=== PATIENT | male | born 1950 | race Caucasian/White ===

== ENCOUNTER → 2022-05-08 | Outpatient (CLI) | payer OTHER, MEDICARE, MEDICAID | LOC: M RAD 08:31 | PROVIDERS: ATTEND Nurse Practitioner Family | DX: K76.0 Fatty (change of) liver, not elsewhere classified (principal); R16.1 Splenomegaly, not elsewhere classified; R18.8 Other ascites; R74.01 Elevation of levels of liver transaminase levels ==

== ENCOUNTER 2022-07-07 12:02 | Observation (INO) | payer MEDICARE, MEDICAID ==
[~2022-07-07] VITALS: Ht 175.3 cm; Wt 62.3 kg
[2022-07-07] MEDS ORDERED: COLC0.6T47 PO (12:18)
[2022-07-07] MEDS ORDERED: ASPI81TA26 PO (12:18)
[2022-07-07] MEDS ORDERED: SPIR-10 PO (12:18)
[2022-07-07] MEDS ORDERED: FURO40TA2 PO (12:18)
[2022-07-07] MEDS ORDERED: ENTR1TAB PO (12:18)
[2022-07-07] MEDS ORDERED: JARD1TAB3 PO (12:18)
[2022-07-07] MEDS ORDERED: POTA1TAB14 PO (12:18)
[2022-07-07] MEDS ORDERED: ATOR80TA59 PO (12:18)
[2022-07-07] MEDS ORDERED: PANT40TA29 PO (12:18)
[2022-07-07] MEDS ORDERED: CHOL125C6 PO (12:18)
[2022-07-07] MEDS ORDERED: CARV25TA PO (12:18)
[2022-07-07] MEDS ORDERED: ALLO300T2 PO (12:18)
[2022-07-07 13:02] LABS: BASO % 0.6 % (0.0-1.0); EOS # 0.1 10^3/uL (0.0-0.5); EOS % 1.4 % (0.0-3.0); LYMPH # 0.7 10^3/uL (1.5-5.0); LYMPH % 11.2 % (24.0-44.0); MEAN CORPUSCULAR HEMOGLOBIN 30.7 pg (27.0-33.0); MEAN CORPUSCULAR HGB CONC 32.4 g/dl (32.0-36.5); MONO # 0.4 10^3/uL (0.0-0.8); MONO % 6.4 % (2.0-8.0); NEUTROPHILS % 79.9 % (36.0-66.0); PLATELET COUNT, AUTOMATED 173 10^3/uL (150-450); RED BLOOD COUNT 3.58 10^6/uL (4.30-6.10); WHITE BLOOD COUNT 6.3 10^3/uL (4.0-10.0)
[2022-07-07 13:17] LABS: INR 1.31; PROTHROMBIN TIME 16.5 SECONDS (12.5-14.5)
[2022-07-07 13:19] LABS: PARTIAL THROMBOPLASTIN TIME 38.8 SECONDS (24.8-34.2)
[2022-07-07 13:26] LABS: CK-MB VALUE MASS 3.5 NG/ML (<3.6)
[2022-07-07 13:28] LABS: ALBUMIN 3.9 G/DL (3.2-5.2); BILIRUBIN,DIRECT 1.3 MG/DL (<0.4); BILIRUBIN,TOTAL 2.2 MG/DL (0.3-1.2); CALCIUM LEVEL 9.5 MG/DL (8.3-10.6); CREATININE FOR GFR 1.33 MG/DL (0.70-1.30); GLOMERULAR FILTRATION RATE 56.6 (>42); POTASSIUM SERUM 5.6 MMOL/L (3.5-5.1); TOTAL PROTEIN 6.9 G/DL (5.7-8.2)
[2022-07-07 13:30] LABS: MB/CK RELATIVE INDEX 7.44 (< OR =4)
[2022-07-07] MEDS ORDERED: DEXTROSE 50% 50ML SYRINGE IV STA ×2 (13:35→18:02)
[2022-07-07] MEDS ORDERED: SOD POLYSTYRENE SULFONATE SUSP 15GM 60ML UD PO ONE (13:35)
[2022-07-07] MEDS ORDERED: HumuLIN R (REGULAR) INSULIN (NovoLIN R) **100U/ML** PER UNIT IV ONE (13:35)
[2022-07-07] MEDS ORDERED: CALCIUM GLUCONATE 1,000 MG in D5W MINI-BAG PLUS 100 ML IV ONE (13:35)
[2022-07-07 13:52] LABS: RSV AMPLIFICATION NEGATIVE (NEGATIVE)
[2022-07-07 14:47] LABS: CK-MB VALUE MASS 3.7 NG/ML (<3.6)
[2022-07-07 14:50] LABS: MB/CK RELATIVE INDEX 8.04 (< OR =4)
[2022-07-07] MEDS ORDERED: CHOL25TA8 PO (16:07)
[2022-07-07] MEDS ORDERED: HOME MED LIST COMPLETE! XX SCH (16:10)
[2022-07-07 17:59] LABS: CALCIUM LEVEL 9.6 MG/DL (8.3-10.6); CREATININE FOR GFR 1.3 MG/DL (0.70-1.30); GLOMERULAR FILTRATION RATE 58.1 (>42); POTASSIUM SERUM 5.2 MMOL/L (3.5-5.1)
[2022-07-07 18:00] LABS: PERCENT SATURATION 25.8 % (19.7-50.0)
[2022-07-07 18:01] LABS: FERRITIN 291.5 NG/ML (10.5-307.3)
[2022-07-07] MEDS ORDERED: HumuLIN R (REGULAR) INSULIN (NovoLIN R) **100U/ML** PER UNIT IV STA (18:02)
[2022-07-07 18:03] LABS: FOLATE 6.3 NG/ML (>5.4)
[2022-07-07] MEDS ORDERED: FUROSEMIDE 40MG/4ML VIAL IV ONE (18:05)
[2022-07-07 20:50] VITALS: BP 130/93
[2022-07-07 21:00] VITALS: BP 101/59
[2022-07-07] MEDS: CARVedilol 12.5 MG TAB PO SCH (21:00)
[2022-07-07 21:54] VITALS: BP 101/59
[2022-07-07] MEDS: HEPARIN SOD (PORCINE) 5000UNITS/ML 1ML VIAL/SYRINGE SQ SCH (21:55)
[2022-07-07 22:14] LABS: CALCIUM LEVEL 9.7 MG/DL (8.3-10.6); CREATININE FOR GFR 1.31 MG/DL (0.70-1.30); GLOMERULAR FILTRATION RATE 57.6 (>42); MAGNESIUM LEVEL 1.8 MG/DL (1.8-2.4); POTASSIUM SERUM 4.8 MMOL/L (3.5-5.1)
[2022-07-08] VITALS: BP 110/60
[2022-07-08 03:42] VITALS: BP 124/66
[2022-07-08] MEDS: HEPARIN SOD (PORCINE) 5000UNITS/ML 1ML VIAL/SYRINGE SQ SCH (05:30)
[2022-07-08 05:42] LABS: RED BLOOD COUNT 3.42 10^6/uL (4.30-6.10); WHITE BLOOD COUNT 6.9 10^3/uL (4.0-10.0)
[2022-07-08 05:43] LABS: HEMOGLOBIN 10.6 g/dl (13.5-17.5); MEAN CORPUSCULAR HGB CONC 33.1 g/dl (32.0-36.5); MEAN CORPUSCULAR VOLUME 93.6 fl (80.0-96.0); PLATELET COUNT, AUTOMATED 173 10^3/uL (150-450)
[2022-07-08 06:00] LABS: INR 1.34; PROTHROMBIN TIME 16.8 SECONDS (12.5-14.5)
[2022-07-08 06:11] LABS: ALBUMIN 3.6 G/DL (3.2-5.2); BILIRUBIN,TOTAL 2.1 MG/DL (0.3-1.2); CALCIUM LEVEL 9.9 MG/DL (8.3-10.6); CREATININE FOR GFR 1.32 MG/DL (0.70-1.30); GLOMERULAR FILTRATION RATE 57.1 (>42); MAGNESIUM LEVEL 1.5 MG/DL (1.8-2.4); PHOSPHORUS LEVEL 4.4 MG/DL (2.4-5.1); POTASSIUM SERUM 4.6 MMOL/L (3.5-5.1); TOTAL PROTEIN 6.5 G/DL (5.7-8.2)
[2022-07-08 07:45] VITALS: BP 112/62
[2022-07-08] MEDS: CARVedilol 12.5 MG TAB PO SCH (08:33)
[2022-07-08] MEDS ORDERED: allopurinoL 300 MG TAB PO SCH (09:00)
[2022-07-08] MEDS ORDERED: ASPIRIN 81MG ENTERIC TABLET PO SCH (09:00)
[2022-07-08] MEDS ORDERED: PANTOPRAZOLE 40MG TAB (PROTONIX) PO SCH (09:00)
[2022-07-08] MEDS ORDERED: ATORVASTATIN 20 MG TAB PO SCH (09:00)
[2022-07-08] MEDS ORDERED: MAGNESIUM OXIDE 400MG TAB (MAG-OX) PO ONE (09:35)
== END 2022-07-08 11:53 | disposition home or self-care (01) ==
LOC: M ED 12:02 → M ED INP 16:34 → ENRESERV 19:09 → M PCU 20:46
PROVIDERS: ADMIT Internal Medicine; ATTEND Internal Medicine
DX: E87.5 Hyperkalemia (principal); D64.9 Anemia, unspecified; I50.9 Heart failure, unspecified; Z95.810 Presence of automatic (implantable) cardiac defibrillator; E87.8 Other disorders of electrolyte and fluid balance, not elsewhere classified; R74.01 Elevation of levels of liver transaminase levels; K21.9 Gastro-esophageal reflux disease without esophagitis; R94.31 Abnormal electrocardiogram [ECG] [EKG]; N18.9 Chronic kidney disease, unspecified; Z87.891 Personal history of nicotine dependence; Z79.82 Long term (current) use of aspirin; Z79.899 Other long term (current) drug therapy
CPT/HCPCS: 36415; 80048; 80053; 80076; 82550; 82553; 82607; 82728; 82746; 83550; 83735; 84100; 84484; 85025; 85027; 85610; 85730; 86850; 86900; 86901; 87631; 93005; 93041; 94760; 96361; 96372; 96374; 96375; 96376; 99285; G0378; J0612; J1815; J1940